=== PATIENT | female | born 1975 | race Caucasian/White ===

== ENCOUNTER 2021-01-04 07:58 | Day surgery (SDC) | payer OTHER ==
[~2021-01-04] VITALS: Ht 165.1 cm; Wt 64.3 kg
[~2021-01-04 07:58] MED LIST: DICL1GEL3 TOP; DIVA500T9 PO; DULC5TAB PO; HYDR50CA2 PO; IMIP50TA3 PO; LEVO150T7 PO; LR 1,000 ML IV ONE; MACR100C43 PO; MIRA3350 PO; OMEP-173 PO; OXYB-54 PO; PERI12LIQ PO; RISP-8 PO; SIMV20TA22 PO; [UNRECOGNIZED DRUG - CODE] PO; [UNRECOGNIZED DRUG - CODE] TOP
[2021-01-04] MEDS ORDERED: fentaNYL 100 MCG/2 ML INJECTION As Ordered ONE ×2 (08:54→11:59)
[2021-01-04] MEDS ORDERED: MIDAZOLAM INJ 2MG/2ML VIAL (J2250 PER 1MG) As Ordered ONE ×2 (08:54→12:12)
[2021-01-04] MEDS ORDERED: ROCURONIUM BROMIDE 50 MG/5 ML VIAL As Ordered ONE (08:54)
[2021-01-04] MEDS ORDERED: propofoL 200 MG/20 ML VIAL As Ordered ONE ×2 (08:54→08:55)
[2021-01-04] MEDS ORDERED: LIDOCAINE 2% 100MG/5ML SDV (FOR ANES.) As Ordered ONE (08:55)
[2021-01-04 09:57] LABS: HCG, SERUM QUALITATIVE NEGATIVE (NEGATIVE)
[2021-01-04] MEDS ORDERED: LIDOCAINE W/EPINEPHRINE 1% 20ML VIAL As Ordered ONE (09:59)
[2021-01-04] MEDS ORDERED: dexameTHASONE 4 MG/ML 1ML VIAL (J1100 PER 1MG) As Ordered ONE (10:05)
[2021-01-04] MEDS ORDERED: ONDANSETRON 4MG/2ML VIAL As Ordered ONE ×2 (10:06→11:59)
[2021-01-04] MEDS ORDERED: SCOPOLAMINE 1MG TRANSDERMAL PATCH As Ordered ONE (10:38)
[2021-01-04] MEDS ORDERED: ACETAMINOPHEN 1000MG 100ML IV BTL (OFIRMEV) (J0131 PER 10MG) As Ordered ONE (10:38)
[2021-01-04] MEDS ORDERED: SUGAMMADEX SODIUM 500 MG/5 ML VIAL (BRIDION) As Ordered ONE (10:40)
[2021-01-04] MEDS: fentaNYL 100 MCG/2 ML INJECTION IV PRN ×4 (12:02→12:20)
[2021-01-04] MEDS ORDERED: LR 1,000 ML IV SCH ×2 (12:05)
[2021-01-04] MEDS ORDERED: ONDANSETRON 4MG/2ML VIAL IV PRN (12:05)
[2021-01-04] MEDS ORDERED: oxyCODONE 5MG TAB PO PRN (12:05)
[2021-01-04] MEDS ORDERED: KETOROLAC 30 MG/ML 1ML VIAL IV ONE (12:15)
[2021-01-04] MEDS ORDERED: MIDAZOLAM INJ 2MG/2ML VIAL (J2250 PER 1MG) IV ONE (12:20)
[2021-01-04 15:40] VITALS: BP 117/59
== END 2021-01-04 15:46 | disposition home or self-care (01) ==
LOC: M SDC 07:58
PROVIDERS: ATTEND Dentist Oral and Maxillofacial Surgery
DX: K02.9 Dental caries, unspecified (principal); Q90.9 Down syndrome, unspecified; K21.9 Gastro-esophageal reflux disease without esophagitis; F41.9 Anxiety disorder, unspecified; Z79.899 Other long term (current) drug therapy
CPT/HCPCS: 36415; 84703; 88300; D7220; D9223; J0131; J1100; J1885; J2250; J2405; J3010